=== PATIENT | male | born 1950 | race Caucasian/White ===

== ENCOUNTER 2022-10-03 14:21 | Emergency (ER) | payer OTHER ==
[2022-10-03] MEDS ORDERED: KETOROLAC 30 MG/ML INJ ONE (15:27)
--- NOTE | 2022-10-03 15:28 | RAD REPORT ---
EXAM DESCRIPTION: CT - Ankle Left Wo Contrast - 10/03/2022 3:09 pm CLINICAL HISTORY: Left ankle and foot pain COMPARISON: None TECHNIQUE: Computed axial tomography left ankle obtained with coronal and sagittal reconstruction All CT scans are performed using dose optimization technique as appropriate and may include automated exposure control or mA/KV adjustment according to patient size. FINDINGS: No fracture or dislocation 9 millimeter spur extends off of plantar aspect of the calcaneus 11 mm enthesophyte extends off of posterior aspect of the calcaneus likely at Achilles insertion. It contains a lucency at its insertion with the calcaneus. 4 millimeter talar dome cyst Edema within the subcutaneous tissues Small bony/calcific densities adjacent to the medial and lateral aspects of the talus appear chronic IMPRESSION: 11 millimeter posterior calcaneus enthesophyte. A lucency at its insertion with the calc aneus could be an acute detachment or be a chronic finding 9 millimeter plantar calcaneal spur
--- NOTE | 2022-10-03 15:54 | EDPHYS ---
Physician Documentation [facility] Name: Sal Hyatt Age: 72 yrs Sex: Male : 1950 Arrival Date: 10/03/2022 Time: 14:21 Bed 9 Private MD: ED Physician David Lerma HPI: 10/03 14:48 This 72 yrs old Male presents to ER via Wheelchair with complaints of Foot Pain. jmm 14:48 This is a 72-year-old male with history of chronic back pain, hypertension the presents jmm emerged part with complaints of left foot pain which has been ongoing for approximately 2 days ago. Patient has had a similar episode in the past. Denies fever. Denies any recent injury pain is mainly localized to the left heel. Historical: - Allergies: 14:47 No Known Allergies; jl7 - Home Meds: 14:47 [place] Oral [Active]; jl7 14:48 Lisinopril Oral [Active]; Metformin Oral [Active]; jl7 - PMHx: 14:47 Chronic back pain; jl7 14:48 Hypertensive disorder; Gout; jl7 - Immunization history:: Adult Immunizations unknown. - Social history:: Smoking status: unknown. ROS: 14:48 Constitutional: Negative for fever, chills, and weight loss, Cardiovascular: Negative jm for chest pain, palpitations, and edema, Respiratory: Negative for shortness of breath, cough, wheezing, and pleuritic chest pain. 14:48 MS/extremity: Positive for pain. 14:48 All other systems are negative. Exam: 14:48 Constitutional: This is a well developed, well nourished patient who is awake, alert, jmm and in no acute distress. Head/Face: atraumatic. Eyes: EOMI, no conjunctival erythema appreciated ENT: Moist Mucus Membranes Neck: Trachea midline, Supple Chest/axilla: Normal chest wall appearance and motion. Cardiovascular: Regular rate and rhythm. No edema appreciated Respiratory: Normal respirations, no respiratory distress appreciated Abdomen/GI: Non distended Back: Normal ROM Skin: General appearance color normal 14:48 Musculoskeletal/extremity: ROM: intact in all extremities, Pain elicited on palpation of the left calcaneus at the Achilles tendon insertion point., Compartments are soft, formed Saldaña pedis pulse, neurovascular tact. 14:48 Skin: Appearance: Color: normal in color. 14:48 Neuro: Orientation: is normal, Mentation: is normal, Memory: is normal. 14:48 Psych: Behavior/mood is pleasant, cooperative. Vital Signs: 14:45 BP 134 / 69; Pulse 95; Resp 17; Temp 99.1; Pulse Ox 92% ; Weight 97.52 kg; Height 5 ft. jl7 6 in. ; Pain 8/10; 14:45 Body Mass Index 34.70 (97.52 kg, 167.64 cm) 7 14:45 Pain Scale: Adult jl7 MDM: 14:[address] [facility] 17:06 Data reviewed: vital signs, nurses notes, radiologic studies, CT scan. Counseling: I kalpana had a detailed discussion with the patient and/or guardian regarding: the historical points, exam findings, and any diagnostic results supporting the discharge/admit diagnosis, radiology results, the need for outpatient follow up, to return to the emergency department if symptoms worsen or persist or if there are any questions or concerns that arise at home. 10/03 15:09 Order name: Ankle Left Wo Contrast; Complete Time: 15:31 EDMS Administered Medications: 15:29 Drug: Ketorolac IM 30 mg Route: IM; Site: right vastus lateralis; [facility] [place] 15:55 Follow up: Response: No adverse reaction [facility] [place] Disposition: 18:14 Co-signature as Attending Physician, David Lerma DO I was immediately available on-site ms3 in the Emergency Department for consultation in the care of the patient. Disposition Summary: 10/03/22 15:54 Discharge Ordered Location: Home [facility] Condition: Stable [facility] Diagnosis - Achilles tendinitis, left leg [facility] Followup: [facility] - With: Adams Wilson MD - When: 2 - 3 days - Reason: Recheck today's complaints, Continuance of care, Re-evaluation by your physician Discharge Instructions: - Discharge Summary Sheet [facility] - Achilles Tendinitis [facility] Forms: - Medication Reconciliation Form [facility] - Thank You Letter [facility] - Antibiotic Education [facility] - Prescription Opioid Use [facility] Prescriptions: - Voltaren Arthritis Pain 1 % Topical gel - apply 4 gram by TOPICAL route 4 times per day As needed apply to single knee, jmm ankle, foot; for foot includes sole/toes/top of foot; 1 unit; Refills: 0, Product Selection Permitted Signatures: Dispatcher [employer] EDMS Kraig Light PA PA jmm Leal, Jahala, RN RN jl7 David Lerma DO DO ms3 Thais Taylor, RN RN eh3 Corrections: (The following items were deleted from the chart) 14:47 14:47 PSHx: None; jl7 jl7 15:09 14:56 Foot Left Wo Con ordered. EDMS EDMS
--- NOTE | 2022-10-03 15:54 | ER ---
Nurse's Notes [facility] Name: Sal Hyatt Age: 72 yrs Sex: Male : 1950 Arrival Date: 10/03/2022 Time: 14:21 Bed 9 Private MD: Diagnosis: Achilles tendinitis, left leg Presentation: 10/03 14:45 Chief complaint: Patient states: Posterior left ankle pain x 2 days. Coronavirus jl7 screen: At this time, the client does not indicate any symptoms associated with coronavirus-19. Ebola Screen: No symptoms or risks identified at this time. Initial Sepsis Screen: Does the patient meet any 2 criteria? No. Patient's initial sepsis screen is negative. Does the patient have a suspected source of infection? No. Patient's initial sepsis screen is negative. Risk Assessment: Do you want to hurt yourself or someone else? Patient reports no desire to harm self or others. Onset of symptoms was October 01, 2022. 14:45 Method Of Arrival: Wheelchair [facility] 14:45 Acuity: RHETT 4 jl7 Triage Assessment: 14:48 General: Appears in no apparent distress. uncomfortable, Behavior is calm, cooperative. jl7 Pain: Complains of pain in left Achilles Pain currently is 8 out of 10 on a pain scale. Historical: - Allergies: 14:47 No Known Allergies; jl7 - Home Meds: 14:47 [place] Oral [Active]; jl7 14:48 Lisinopril Oral [Active]; Metformin Oral [Active]; jl7 - PMHx: 14:47 Chronic back pain; jl7 14:48 Hypertensive disorder; Gout; jl7 - Immunization history:: Adult Immunizations unknown. - Social history:: Smoking status: unknown. Screenin:00 [facility] ED Fall Risk Assessment (Adult) Score/Fall Risk Level 0 - 2 = Low Risk. Abuse eh3 screen: Denies threats or abuse. Denies injuries from another. Nutritional screening: No deficits noted. Tuberculosis screening: No symptoms or risk factors identified. Assessment: 15:00 General: Appears in no apparent distress. uncomfortable, Behavior is calm, cooperative, eh3 appropriate for age. Pain: Complains of pain in left Achilles. Neuro: Level of Consciousness is awake, alert, obeys commands, Oriented to person, place, time, situation. Cardiovascular: Capillary refill < 3 seconds Patient's skin is warm and dry. Respiratory: Airway is patent Respiratory effort is even, unlabored, Respiratory pattern is regular, symmetrical. GI: Abdomen is round non-distended. Derm: Skin is pink, warm \T\ dry. Musculoskeletal: Circulation, motion, and sensation intact. Vital Signs: 14:45 BP 134 / 69; Pulse 95; Resp 17; Temp 99.1; Pulse Ox 92% ; Weight 97.52 kg; Height 5 ft. jl7 6 in. ; Pain 8/10; 14:45 Body Mass Index 34.70 (97.52 kg, 167.64 cm) 7 14:45 Pain Scale: Adult 7 ED Course: 14:23 Patient arrived in ED. rg4 14:33 Kraig Light PA is PHCP. [facility] 14:33 David Lerma DO is Attending Physician. [facility] 14:47 Triage completed. 7 14:48 Arm band placed on right wrist. 7 15:00 Patient has correct armband on for positive identification. Bed in low position. Call eh3 light in reach. Side rails up X2. 15:09 Ankle Left Wo Contrast In Process Unspecified. EDMS 15:11 Thais Taylor, RN is Primary Nurse. 3 15:54 Adams Wilson MD is Referral Physician. [facility] 15:55 No provider procedures requiring assistance completed. Patient did not have IV access eh3 during this emergency room visit. Administered Medications: 15:29 Drug: Ketorolac IM 30 mg Route: IM; Site: right vastus lateralis; 3 15:55 Follow up: Response: No adverse reaction 3 Medication: 15:55 VIS not applicable for this client. 3 Outcome: 15:54 Discharge ordered by . [facility] 16:04 Discharged to home ambulatory. 3 16:04 Condition: stable 16:04 Discharge instructions given to patient, Instructed on discharge instructions, follow up and referral plans. medication usage, Demonstrated understanding of instructions, follow-up care, medications, Prescriptions given X 1. 16:04 Patient left the ED. eh3 Signatures: Dispatcher [employer] EDMS Kraig Light PA PA jmm Garcia, Rubi rg4 Nick Garsia RN RN 7 Thais Taylor, JENNIFER RN eh3 Corrections: (The following items were deleted from the chart) 14:47 14:47 PSHx: None; jl7 jl7
[2022-10-03 17:52] VITALS: BP 134/69; TEMP 99.1; O2SAT 92
== END 2022-10-03 16:04 | disposition home or self-care (01) ==
LOC: ER 14:21
DX: M76.62 Achilles tendinitis, left leg (principal); I10 Essential (primary) hypertension
CPT/HCPCS: 73700; 96372; 99284